=== PATIENT | male | born 2000 | race Caucasian/White ===

== ENCOUNTER → 2019-05-03 | Outpatient (CLI) | payer BC ==
--- NOTE | 2019-05-03 12:27 | Diagnostic Imaging Report ---
PROCEDURE: US abdomen complete. TECHNIQUE: Multiple real-time grayscale images were obtained over the abdomen in various projections. INDICATION: Splenomegaly. COMPARISON: There are no prior studies available for comparison. FINDINGS: This study was technically difficult due to the patient's body habitus. The spleen is borderline mildly enlarged. The spleen measures 12.5 x 6.7 x 4.8 cm. The splenic volume is estimated to be 210 cc (normal 200 cc or less). The spleen is homogeneous and there is no perisplenic fluid collection identified. The liver does not appear to be enlarged. There is no evidence for cholelithiasis or acute cholecystitis and the common bile duct is not dilated. There is no sign of solid renal mass or of hydronephrosis of either kidney. There is a 3.7 x 3.0 x 2.5 cm cyst associated with the left kidney. This cyst is somewhat difficult to visualize but has a generally benign appearance. The pancreas, the proximal aorta, and inferior vena cava were partially obscured by bowel gas. IMPRESSION: 1. There is no acute abnormality of the abdomen. If clinical concern regarding an acute abnormality persists, then CT of the abdomen and pelvis would be recommended. 2. There is borderline splenomegaly. This is of uncertain etiology. 3. There is a benign-appearing 3.7 x 3 x 2.5 cm cyst associated with the left kidney. Dictated by: Dictated on workstation # [id number]
== END ==
LOC: RAD 08:41
PROVIDERS: ATTEND Pediatrics
DX: R16.1 Splenomegaly, not elsewhere classified (principal)
CPT/HCPCS: 76700

== ENCOUNTER → 2019-05-06 | Outpatient (CLI) | payer BC ==
[~2019-05-06] MED LIST: CATHETER FLUSH 10 ML SYR IV PRN; HOLD METFORMIN - RECEIVED CONTRAST 20 ML VIAL IV SCH; IOHEXOL 350 MG/ML 100 ML (OMNIPAQUE 350) VIAL IV ONE; NS 100 ML (IVPB) BAG IV ONE
--- NOTE | 2019-05-06 16:48 | Diagnostic Imaging Report ---
PROCEDURE: CT abdomen and pelvis with contrast. TECHNIQUE: Multiple contiguous axial images were obtained through the abdomen and pelvis after administration of intravenous contrast. Auto Exposure Controls were utilized during the CT exam to meet ALARA standards for radiation dose reduction. INDICATION: Left upper quadrant pain. Findings: No comparison available. Limited views of the lower thorax are unremarkable. There is old granulomatous disease in the liver. Liver is otherwise normal without focal lesion. Gallbladder is normal. No biliary ductal dilation. Portal vein is patent. Pancreas is normal. There are calcified granulomas in the spleen. The spleen is not enlarged. Adrenal glands are normal. There are either small nonobstructing stones or early excretion of contrast in the kidneys. No hydronephrosis. Left-sided renal cyst is seen. Urinary bladder is normal. Prostate is normal. There are no dilated loops of large or small bowel. No bowel obstruction or inflammation. The appendix is normal. No free fluid or air. Abdominal aorta is normal in caliber. No abdominal or pelvic lymphadenopathy. There are no suspicious osseous lesions. Impression: 1. No acute abnormality in the abdomen or pelvis. Dictated by: Dictated on workstation # [id number]
== END ==
LOC: RAD 14:37
PROVIDERS: ATTEND Pediatrics
DX: R10.12 Left upper quadrant pain (principal); R16.1 Splenomegaly, not elsewhere classified
CPT/HCPCS: 74177

== ENCOUNTER → 2019-05-20 | Outpatient (CLI) | payer BC ==
[~2019-05-20] MED LIST changes: -HOLD METFORMIN - RECEIVED CONTRAST 20 ML VIAL IV SCH; -IOHEXOL 350 MG/ML 100 ML (OMNIPAQUE 350) VIAL IV ONE; -NS 100 ML (IVPB) BAG IV ONE
--- NOTE | 2019-05-20 15:31 | Diagnostic Imaging Report ---
INDICATION: Left upper quadrant pain. TECHNIQUE: Patient was administered 5.4 mCi technetium 99m Choletec intravenously and imaging over the abdomen was performed. At one hour patient ingested 8 ounces of Ensure and a gallbladder ejection fraction was calculated. Patient denied any discomfort during the study. FINDINGS: There is homogeneous uptake of activity by the liver. Prompt excretion of activity into the common duct and gallbladder is noted. There is normal passage into the small bowel. Gallbladder ejection fraction is 84%. IMPRESSION: 1. Patent cystic duct and common bile duct. 2. Gallbladder ejection fraction of 84%. Dictated by: Dictated on workstation # [id number]
== END ==
LOC: CARD 12:36
PROVIDERS: ATTEND Pediatrics
DX: R10.12 Left upper quadrant pain (principal)
CPT/HCPCS: 78227